=== PATIENT | female | born 1975 | race Caucasian/White ===

== ENCOUNTER 2024-06-03 23:48 | Emergency (ER) | payer MEDICAID ==
[~2024-06-03] VITALS: Ht 170.2 cm; Wt 84.0 kg
[2024-06-03 23:53] VITALS: TEMP 96.8
[2024-06-03] MEDS ORDERED: NO HOME MEDS (23:56)
[2024-06-04] MEDS: ketorolac trometh 30MG/ML vial 30 MG/ML VIAL IV ONE (00:03)
[2024-06-04] MEDS: ketorolac trometh 30MG/ML vial 30 MG/ML VIAL IM ONE (00:19)
[2024-06-04 00:28] VITALS: BP 157/95; PULSE 70; RESP 14; O2SAT 96
[2024-06-04] MEDS ORDERED: ONDA-243 PO (01:02)
[2024-06-04] MEDS ORDERED: DICL20GE TOP (01:02)
[2024-06-04] MEDS ORDERED: NAPR-56 PO (01:02)
[2024-06-04] MEDS ORDERED: HYDR-3965 PO (01:02)
[2024-06-04] MEDS ORDERED: LIDO700A32 TOP (01:02)
== END 2024-06-04 01:10 | disposition home or self-care (01) ==
LOC: ER 23:49
DX: S22.31XA Fracture of one rib, right side, initial encounter for closed fracture (principal); G89.11 Acute pain due to trauma; W09.8XXA Fall on or from other playground equipment, initial encounter; Y93.89 Activity, other specified; Y92.89 Other specified places as the place of occurrence of the external cause; Y99.8 Other external cause status
CPT/HCPCS: 71250; 96372; 99285; J1885

== ENCOUNTER 2024-06-29 15:44 | Emergency (ER) | payer MEDICAID ==
[~2024-06-29] VITALS: Ht 170.2 cm; Wt 84.1 kg
[~2024-06-29 15:44] MED LIST: DICL20GE TOP; HYDR-3965 PO; LIDO700A32 TOP; NAPR-56 PO; NO HOME MEDS; ONDA-243 PO
[2024-06-29 16:30] VITALS: BP 144/86; PULSE 94; O2SAT 99
[2024-06-29] MEDS ORDERED: CEFU500T66 PO (17:14)
[2024-06-29 17:39] VITALS: RESP 16
[2024-06-29] MEDS: ketorolac trometh 15mg/ml vial 15 MG/ML ML IM ONE (17:39)
[2024-06-29] MEDS: cefuroxime axetil 250mg tablet PO ONE (17:40)
[2024-06-29] MEDS: TETanus/Pertussis (Acell)/Diphther VAC/PF (Tdap-Adult) 0.5ml syringe IMVAC ONE (17:40)
[2024-06-29 17:49] VITALS: TEMP 97.6
== END 2024-06-29 17:51 | disposition home or self-care (01) ==
LOC: ER 15:46
DX: L03.115 Cellulitis of right lower limb (principal)
CPT/HCPCS: 90471; 90715; 96372; 99284; J1885

== ENCOUNTER 2024-08-30 10:48 | Emergency (ER) | payer MEDICAID ==
[~2024-08-30] VITALS: Ht 170.2 cm; Wt 85.6 kg
[~2024-08-30 10:48] MED LIST changes: +CEFU500T66 PO; -HYDR-3965 PO; +LIDO-52 TOP; -LIDO700A32 TOP; -NAPR-56 PO
[2024-08-30 11:01] VITALS: BP 121/70; PULSE 86; TEMP 98.9; O2SAT 98
--- NOTE | 2024-08-30 11:26 | Physician Documentation ---
History of Present Illness ~ Chief Complaint: Ankle pain Stated Complaint: ANKLE PAIN Time Seen by MD: 14:22 HPI This is a 48-year-old female who presents with two weeks of progressively worsening right ankle pain, patient reports no known injury to the ankle. Tetanus witin 5 years: Yes Medication Reconciliation Allergies: Coded Allergies: No Known Allergies (Unverified , 06/03/24) Scheduled Cefuroxime Axetil (Cefuroxime), 1 TAB PO Q12H Diclofenac Sodium (Voltaren Arthritis Pain), 2 G TOP Q12H Ibuprofen (Ibuprofen), 1 TAB PO Q8H Lidocaine (Lidoderm), 1 PATCH TOP DAILY Scheduled PRN ONDANSETRON ODT 4mg tablet (Ondansetron Odt), 1 TAB PO Q6H PRN PRN for nausea/vomiting Miscellaneous Medications Home Med List (No Home Medications), (Reported) Past Medical History Past Medical History: No Pertinent History Review of Systems ROS Right ankle pain as stated above in the HPI, otherwise all systems are reviewed and negative. Physical Exam Vital Signs: Temperature: 98.9, Source: Temporal, Heart Rate: 86, Respiratory Rate: 18, BP: 121/70, Pulse Oximetry: 98, Weight: 85.600 Oxygen Flow Rate: 0 Physical Exam VITALS: Reviewed and as above. GENERAL: Alert, nontoxic appearing, no apparent distress. RESPIRATORY: No increased work of breathing, no respiratory distress, speaking in full clear sentences MUSCULOSKELETAL: Tender to palpation to the lateral aspect of right ankle. No swelling, ecchymosis, or erythema to the right ankle or foot. Brisk capillary refill and pedal pulse intact. Progress Results/Orders Results/Orders Orders - KARISSA TOM Ortho Orders (08/30/24 14:36) Completed Orders - KARISSA TOM Ketorolac Trometh 15mg/Ml Vial (Toradol (08/30/24 14:40) Medications Received in ER Medications (Trade) Dose Ordered Sig/Jas Route PRN Reason Start Time Stop Time Status Last Admin Dose Admin (Toradol injection) 15 mg ONCE ONCE IM 08/30/24 14:40 08/30/24 14:41 DC 08/30/24 15:00 15 MG Vital Signs 08/30/24 08/30/24 11:01 15:00 Temp 98.9 Pulse 86 Resp 18 6 B/P (MAP) 121/70 Pulse Ox 98 O2 Flow Rate 0 EKG/XRAY/CT/US/VASC/MRI Bone/Soft Tissue X-Ray (Ext.) : Additional Comment EXAM: DI ANKLE, COMPLETE(3VW MIN) CLINICAL INDICATION: RT.ANKLE PAIN TECHNIQUE: DI ANKLE, COMPLETE(3VW MIN) Comparison: None FINDINGS/IMPRESSION: There is no evidence of acute fracture or dislocation. The visualized joint space is well maintained. The alignment is anatomical. There is no radiopaque foreign body. Electronically Signed by:AGUSTO JACKSON MD Date & Time: 08/30/241121 Dictated by: AGUSTO JACKSON MD Dictation date and time: 08/30/241121 I have reviewed and agree with the radiology report. I have reviewed and interpreted the imaging as: no fracture or dislocation Medical Decision Making Findings MSE performed in triage and patient returned to ED lobby by nursing staff This 48-year-old female presented with two weeks of progressively worsening right ankle pain, physical exam was benign with no evidence of erythema, ecchymosis, deformity, or swelling to the area. Lateral aspect of the ankle was mildly tender to palpation, x-ray obtained though did not demonstrate evidence of fracture or dislocation. The foot was neurovascularly intact. As patient is otherwise well-appearing reporting no other symptoms and had benign physical exam plan will be to treat with rest, ice, compression, and elevation therapy along with ibuprofen. Patient to be provided a brace and crutches in to follow up with primary care provider or [facility] for re-evaluation. I discussed plan with the patient who agrees, patient provided home care instructions, follow up instructions, and return to care precautions which she verbalized understanding of. Patient medicated for pain prior to discharge. Ankle Diff Dx:Considerations: Include: Abrasion, Arthritis, Contusion, DJD, Fracture-metatarsal, Fracture-fibula, Fracture-tarsal, Gout, Hematoma, Laceration, Neurovascular injury, Osteomyelitis, Sprain, Septic Departure Time of Disposition: 14:39 Disposition: 01 HOME / SELF CARE / HOMELESS Impression: Primary Impression: Ankle pain, right Qualified Codes: M25.571 - Pain in right ankle and joints of right foot Condition: Improved Discharge Instructions: Ankle Pain, RICE Therapy for Routine Care of Injuries, [id number] Additional Instructions: Please see the attached home care instructions for rest, compression, elevation, and elevation for treatment of your injury. Please use the provided crutches to help rest your ankle, you may walk on it as tolerated. Please use the prescribed ibuprofen as needed for pain, also add Tylenol as needed for pain as directed by the [id number] packaging. Please follow up with your primary care provider in the next few days for recheck and possible referral to orthopedist or physical therapy. Please return to the emergency department for any new or worsening concerning symptoms. Referrals: NO PRIMARY CARE PROVIDER (PCP) Prescriptions Ibuprofen (Ibuprofen) 800 Mg Tablet 1 TAB PO Q8H for pain for 10 Days, #30 TAB 0 Refills Prov: KARISSA TOM 08/30/24 Education Educated: Patient Educated regarding: diagnosis, treatment, prognosis, need for follow up Signature Scribe Signature: No scribe Attestation: The note accurately reflects work and decisions made by me.NANY Johnson 08/30/24 21:06 KARISSA TOM Aug 30, 2024 11:26
[2024-08-30] MEDS ORDERED: IBUP-1986 PO (14:41)
[2024-08-30 15:00] VITALS: RESP 6
[2024-08-30] MEDS: ketorolac trometh 15mg/ml vial 15 MG/ML ML IM ONE (15:00)
== END 2024-08-30 15:09 | disposition home or self-care (01) ==
LOC: ER 10:49
DX: M25.571 Pain in right ankle and joints of right foot (principal)
CPT/HCPCS: 29520; 73610; 96372; 99283; J1885; L1930